=== PATIENT | male | born 1970 ===

== ENCOUNTER 2020-09-26 13:36 | Emergency (ER) | payer BC, OTHER ==
--- NOTE | 2020-09-26 13:42 | EDM.PDOC ---
ED HPI GENERAL MEDICAL PROBLEM - General Chief Complaint: Respiratory Problem Stated Complaint: POSSIBLE COVID SENT FROM [place] Time Seen by Provider: 09/26/20 13:41 Source of Information: Reports: Patient, RN, RN Notes Reviewed History Limitations: Reports: No Limitations - History of Present Illness INITIAL COMMENTS - FREE TEXT/NARRATIVE: Pt presents to ER with c/o 5 day history of cough, fever, and generalized body aches. Pt admits to shortness of breath. Pt denies chest pain. He is concerned about the possibility of COVID. Onset: Gradual Onset Date: 09/21/20 Duration: Constant Location: Reports: Generalized Quality: Reports: Ache Severity: Severe Improves with: Reports: None Worsens with: Reports: None Associated Symptoms: Reports: No Other Symptoms - Related Data Allergies Allergy/AdvReac Type Severity Reaction Status Date / Time No Known Allergies Allergy Verified 04/09/16 14:28 Home Meds: Home Meds . [No Known Home Meds] 04/09/16 [History] Past Medical History - Past Health History Medical/Surgical History: Denies Medical/Surgical History Social & Family History - Family History Family Medical History: No Pertinent Family History - Living Situation & Occupation Living situation: Reports: with Family Occupation: Employed ED ROS GENERAL - Review of Systems Review Of Systems: Comprehensive ROS is negative, except as noted in HPI. ED EXAM, GENERAL - Physical Exam Exam: See Below Exam Limited By: No Limitations General Appearance: Alert, WD/WN, No Apparent Distress Eye Exam: Bilateral Eye: Normal Inspection Ears: Normal External Exam, Normal Canal, Hearing Grossly Normal, Normal TMs Nose: Normal Inspection, Normal Mucosa, No Blood Throat/Mouth: Normal Inspection, Normal Lips, Normal Teeth, Normal Gums, Normal Oropharynx, Normal Voice, No Airway Compromise Head: Atraumatic, Normocephalic Neck: Normal Inspection, Supple, Non-Tender, Full Range of Motion. No: Lymphadenopathy (L), Lymphadenopathy (R) Respiratory/Chest: No Respiratory Distress, Lungs Clear, Normal Breath Sounds, No Accessory Muscle Use, Chest Non-Tender, Other (Dry cough). No: Crackles, Rales, Rhonchi, Wheezing Cardiovascular: Normal Peripheral Pulses, Regular Rate, Rhythm, No Edema, No Gallop, No JVD, No Murmur, No Rub GI/Abdominal: Normal Bowel Sounds, Soft, Non-Tender, No Organomegaly, No Distention, No Abnormal Bruit, No Mass Back Exam: Normal Inspection Extremities: Normal Inspection, Normal Range of Motion, Non-Tender, Normal Capillary Refill, No Pedal Edema Neurological: Alert, Oriented, CN II-XII Intact, Normal Cognition, Normal Gait, No Motor/Sensory Deficits Psychiatric: Normal Affect, Normal Mood Skin Exam: Warm, Dry, Intact, Normal Color, No Rash Course - Vital Signs Last Recorded V/S: Last Vital Signs Temp 97.0 F 09/26/20 13:45 Pulse 86 09/26/20 13:45 Resp 18 09/26/20 13:45 BP 97/51 L 09/26/20 13:45 Pulse Ox 100 09/26/20 13:45 - Orders/Labs/Meds Orders: Active Orders 24 hr Category Date Time Status Chest 1V Frontal [CR] Stat Exams 09/26/20 14:50 Taken Labs: Laboratory Tests 09/26/20 Range/Units 13:42 Influenza Type A RNA Negative (NEGATIVE) Influenza Type B RNA Negative (NEGATIVE) SARS-CoV-2 RNA ([facility]) Positive H (NEGATIVE) Meds: Medications Discontinued Medications Generic Name Dose Route Start Last Admin Trade Name Freq PRN Reason Stop Dose Admin Dexamethasone 6 mg 09/26/20 14:50 Dexamethasone 6 Mg Tablet PO 09/26/20 14:51 ONETIME ONE Promethazine HCl/Codeine 10 ml 09/26/20 14:51 Codeine/Promethazine 10-6.25 Mg/5 Ml Syrup 5 Ml Ud Cup PO 09/26/20 14:52 ONETIME ONE - Radiology Interpretation Free Text/Narrative:: Chest XR: Bibasilar patchy infiltrates, see Rad. report. Departure - Departure Time of Disposition: 15:40 Disposition: Home, Self-Care 01 Condition: Good Clinical Impression: Pneumonia due to COVID-19 virus - Discharge Information *PRESCRIPTION DRUG MONITORING PROGRAM REVIEWED*: Not Applicable *COPY OF PRESCRIPTION DRUG MONITORING REPORT IN PATIENT BO: Not Applicable Instructions: COVID-19, Prevent the Spread of COVID-19 if You Are Sick - CDC Forms: ED Department Discharge Additional Instructions: Rx: Decadron 6mg Rx: Zithromax 500mg Rx: Promethazine Codeine Syrup Self quarantine at home for 14 days from the date your symptoms began. Return to ER or call 911 if you develop breathing difficulty. Sepsis Event Note (ED) - Focused Exam Vital Signs: Vital Signs Temp Pulse Resp BP Pulse Ox 09/26/20 13:45 97.0 F 86 18 97/51 L 100 - My Orders Last 24 Hours: My Active Orders 09/26/20 14:50 Chest 1V Frontal [CR] Stat - Assessment/Plan Last 24 Hours: My Active Orders 09/26/20 14:50 Chest 1V Frontal [CR] Stat
[2020-09-26 14:39] LABS: CORONAVIRUS COVID-19 NAA POSITIVE (NEGATIVE)
[2020-09-26] MEDS ORDERED: Dexamethasone 6 MG TABLET PO ONE (14:50)
[2020-09-26] MEDS ORDERED: Codeine/Promethazine 10-6.25 MG/5 ML Syrup 5 ML UD Cup PO ONE (14:51)
--- NOTE | 2020-09-26 15:41 | CR ---
EXAMINATION: Chest 1V Frontal SEX: Male AGE: 50 years CLINICAL HISTORY: 50-year-old obese male with cough (COVID positive). No comparison CXR immediately available. Interpretation: Abnormal. Patchy BIBASILAR INFILTRATES (left greater than right). No air bronchograms, atelectasis or collapse. No lung mass or hilar lymphadenopathy. Normal midline tracheal bronchial airway. Normal cardiac silhouette (size and configuration). No pulmonary vascular congestion, cephalization of flow, alveolar edema or dependent pleural fluid accumulation (pleural effusion). No pneumothorax or pneumomediastinum. No free subdiaphragmatic air.
== END 2020-09-26 15:55 | disposition home or self-care (01) ==
LOC: DL.ED 13:36
DX: U07.1 COVID-19 (principal); J12.82 Pneumonia due to coronavirus disease 2019
CPT/HCPCS: 0240U; 71045; 99285; A9270; J8540; 99283